=== PATIENT | male | born 1980 | race Two or more races ===

== ENCOUNTER 2025-02-11 22:20 | Emergency (ER) | payer MEDICAID, SELFPAY ==
[2025-02-12 00:02] VITALS: BP 124/63; PULSE 94; RESP 20; TEMP 37.5; O2SAT 97
--- NOTE | 2025-02-12 00:13 | XR_ITS ---
Examination: CT abdomen and pelvis without contrast. Coronal 3-D reconstructions. Sagittal 2-D reconstructions. Date and time of exam: February 12, 2025, 0244 hours, comparison 11/01/2022 INDICATIONS: Abdominal pain diarrhea and vomiting beginning today CTDI: vol (mGy): 6.43 DLP: (mGycm): 367 Technique: Axial images of the abdomen have been obtained, 3 mm slice thickness Intravenous contrast material has not been administered. Low dose protocols were performed. One or more of the following dose reduction techniques were used; automated exposure control, adjustment of the mA and/or KV according to patient size, use of iterative reconstruction technique. Findings: No visualized liver or splenic lesion Absent gallbladder No pancreatic or adrenal mass. No renal or ureteral calculi. Multiple fluid distended small bowel loops Aorta normal size Normal appendix No diverticulitis Colonic diverticulosis Intact urinary bladder Transverse prostate dimension 4.3 cm Intact osseous structures IMPRESSION: Multiple fluid distended small bowel loops, differential would include ileus, enteritis such as Crohn's disease, early small bowel obstruction not excluded, clinical correlation advised and follow-up accordingly
--- NOTE | 2025-02-12 00:14 | PD.EDRME ---
Rapid Medical Screening Exam RME Arrival date/time: 02/11/25 22:20 This is a case of 44-year-old male with no medical history came into the emergency room due to generalized abdominal pain with nausea vomiting Chief Complaint: Abdominal Pain Time Seen by Provider: 02/11/25 22:36 Vital signs: Vital Signs Temperature 99.5 F 02/12/25 00:02 Pulse Rate 94 02/12/25 00:02 Respiratory Rate 20 02/12/25 00:02 Blood Pressure 124/63 02/12/25 00:02 Pulse Oximetry (%) 97 02/12/25 00:02 Oxygen Delivery Method Room Air 02/12/25 00:02 Exam: Moderate tenderness on both lower abdomen no guarding no rebound no rigidity Clinical Impression: Abdominal pain
[2025-02-12 00:44] LABS: Collection Type, Urine Clean Catch
[2025-02-12 00:50] LABS: Bilirubin,Urine Negative (Negative); Blood,Urine Negative (Negative); Clarity,Urine Clear (Clear/Hazy); Color,Urine Lt-Yellow (Lt Yel-Yel); Glucose, Urine 1+ (Negative); Ketones,Urine 3+ (Negative); Leukocyte Esterase,Urine Negative (Negative); Nitrite,Urine Negative (Negative); PH,Urine 6.5 (5.0-7.0); Protein,Urine Trace (Neg - Trace); RBC,Urine 3 /hpf (0-3); Specific Gravity,Urine 1.031 (1.001-1.035); Squamous Epithelial Cell,Urine 1 /hpf (0-5); Urobilinogen,Urine Negative mg/dL (0.0-1.0); WBC,Urine 1 /hpf (0-5)
[2025-02-12 01:28] LABS: Basophils # (Auto) 0.0 Thou/mm3 (0.0-0.2); Basophils % (Auto) 0 % (0-2.5); Eosinophils # (Auto) 0.0 Thou/mm3 (0.0-0.5); Eosinophils % (Auto) 0 % (0-10); Hematocrit 42.3 % (41.0-53.0); Hemoglobin 14.7 g/dL (13.5-16.0); Immature Granulocytes Auto 0.03 Thou/mm3 (0.00-0.00); Lymphocytes # (Auto) 0.4 Thou/mm3 (1.0-4.8); Lymphocytes % (Auto) 3 % (10-50); Mean Corpuscular HGB Conc 34.8 g/dl (31.0-37.0); Mean Corpuscular Hemoglobin 31.6 pg (25.0-35.0); Mean Corpuscular Volume 91 fL (80-100); Monocytes # (Auto) 0.4 Thou/mm3 (0.0-0.8); Monocytes % (Auto) 3 % (0-12); Neutrophils # (Auto) 10.9 Thou/mm3 (1.8-7.7); Neutrophils % (Auto) 93 % (37-80); Nucleated Red Blood Cell # 0.00 Thou/mm3 (0.00-0.00); Nucleated Red Blood Cell % 0 /100 WBC (0); Platelet Count 240 Thou/mm3 (140-440); RDW Standard Deviation 43.6 fL (35.1-43.9); Red Blood Count 4.65 Miln/mm3 (4.50-5.90); White Blood Count 11.7 Thou/mm3 (3.8-10.6)
[2025-02-12 01:48] LABS: Alanine Aminotransferase 26 U/L (10-49); Albumin, Serum 4.7 gm/dL (3.5-5.0); Albumin/Globulin Ratio 1.5 (1.2-2.2); Alkaline Phosphatase 90 U/L (46-116); Anion Gap 10 (7-16); Aspartate Amino Transferase 24 U/L (0-34); BUN/Creatinine Ratio 17 Ratio (12-20); Bilirubin,Total 0.5 mg/dL (0.3-1.2); Blood Urea Nitrogen 15 mg/dL (9-23); Calcium 8.8 mg/dL (8.3-10.6); Calcium (Corrected) 8.8 mg/dL (8.5-10.1); Carbon Dioxide 27.1 mMol/L (20.0-31.0); Chloride 102 mMol/L (98-107); Creatinine (Component) 0.9 mg/dL (0.6-1.3); Globulin 3.2 gm/dL (2.3-3.5); Glucose 174 mg/dL (74-106); Lipase 30 U/L (12-53); Osmolality,Calculated 282 (275-295); Potassium 4.2 mMol/L (3.4-5.1); Sodium 139 mMol/L (136-145); Total Protein 7.9 gm/dL (5.7-8.2); eGFR > 60 See Note
--- NOTE | 2025-02-12 03:37 | PRELIM_ITS ---
CT scan of the abdomen and pelvis without intravenous contrast (axial sections with sagittal and coronal reformats) February 12, 2025 0241 hours Clinical History: Abd pain Radiation Dose: Total exam DLP 368 mGy/cm Comparison: No prior study is available for comparison. Findings: Bibasilar dependent atelectasis is present. The gallbladder is surgically absent. The liver, pancreas, spleen, kidneys and adrenals are unremarkable on this noncontrast study. Fluid filled small bowel loops are noted. No evidence of bowel obstruction. There are multiple colonic diverticula without evidence of diverticulitis. The appendix is within normal limits (coronal images 62-70/132). There is no mesenteric or retroperitoneal adenopathy. The urinary bladder is unremarkable. There is no free fluid or free air. The osseous structures are unremarkable. Impression: No evidence of acute intra-abdominal or pelvic pathology. Fluid-filled small bowel loops while nonspecific. However, in the appropriate clinical setting the possibility of entritis cannot be excluded. Other findings as described above. Report Electronically Signed By: Pilar Amador 02/12/2025 3:36:48 AM [EST]
--- NOTE | 2025-02-12 03:58 | PD.EDABDPN ---
ED Abdominal Pain RME/HPI General Chief Complaint: Abdominal Pain Stated complaint: ABDOMINAL PAIN, DIARRHEA AND VOMITING Time seen by provider: 02/11/25 22:36 Arrival date/time: 02/11/25 22:20 RME / HPI RME / HPI narrative: 02/11/25 22:20 This is a case of 44-year-old male with no medical history came into the emergency room due to generalized abdominal pain with nausea vomiting Dr. Wells?s Main ED Evaluation: 44yo male with no significant past medical history presents to the ED for a chief complaint of generalized abdominal pain x 1 day. Patient reports associated nonbloody N/V/D throughout the day. Denies any fever, chills, chest pain, cough, shortness of breath, or any other associated symptoms. NKA. Related Data Previous Rx's ?Medication ?Instructions ?Recorded hydrocodone 5 mg-acetaminophen 325 1 tab PO Q6H PRN pain #16 tabs 11/01/22 mg tablet dicyclomine 20 mg tablet 20 mg PO QID PRN abdominal pain 02/12/25 #20 tabs ondansetron 4 mg disintegrating 4 mg PO Q6H PRN nausea and 02/12/25 tablet vomiting #20 tabs Allergies Allergy/AdvReac Type Severity Reaction Status Date / Time No Known Allergies Allergy Verified 11/01/22 03:51 Review of Systems Review of Systems Systems Reviewed: All systems reviewed, normal except as documented Past Medical History Past Medical History NEUROLOGIC: Negative Neurological Disorders or Seizures CARDIAC: Negative Cardiac Disorders or Congestive Heart Failure RESPIRATORY: Negative Chronic Obstructive Pulmonary Disease (COPD) or Asthma GASTROINTESTINAL: Positive Gastrointestinal Disorders and Gastroesophageal Reflux Disease GENITOURINARY: Negative Genitourinary Disorders or Renal Disease MUSCULOSKELETAL: Negative Musculoskeletal Disorders ENDOCRINE: Negative Endocrine Disorders, Diabetes Mellitus Type 1 or Diabetes Mellitus Type 2 HEMATOLOGIC: Negative Blood Disorders or Sickle Cell Disease OTHER HISTORY: Negative Blood Transfusions, Blood Transfusion Reaction or Anesthesia Reactions Social History SMOKING STATUS: Never smoker SUBSTANCE USE: does not use ED Exam Narrative Physical exam: Generally patient is alert in no obvious distress, heart regular rate and rhythm, lungs clear to auscultation equal bilaterally, abdomen soft bowel sounds present nondistended mild diffuse tenderness without rebound Course Quality Measures none Orders Category Date Time Status CT abdomen pelvis wo con Stat Exams 02/12/25 00:13 Taken CBC Stat Lab 02/12/25 01:11 Completed Comprehensive Metabolic Panel Stat Lab 02/12/25 01:11 Completed Lipase Stat Lab 02/12/25 01:11 Completed Urinalysis Stat Lab 02/12/25 00:29 Completed Vital Signs Vital signs: Vital Signs Temperature 99.5 F 02/12/25 00:02 Pulse Rate 94 02/12/25 00:02 Respiratory Rate 20 02/12/25 00:02 Blood Pressure 124/63 02/12/25 00:02 Pulse Oximetry (%) 97 02/12/25 00:02 Oxygen Delivery Method Room Air 02/12/25 00:02 Abdominal Pain MDM MDM Narrative MDM Narrative:: Scribe Attestation: 02/12/25 - Zenia, Lina Washington am scribing for and in the presence of Dr. Wells. I interpreted all labs. CT scan down the abdomen pelvis without contrast showed no evidence of acute intra-abdominal or pelvic pathology other than showing the possibility of enteritis. Patient will be discharged on Bentyl and Zofran to be taken as prescribed. Clear liquid diet and advance as tolerated. Patient data External records reviewed:: [facility] previous records (Per chart review, patient was seen here on 11/01/22 for chest wall contusion.) Clinical information provided by:: patient Social determinants that could affect healthcare access:: none Patient has the following chronic illnesses:: none How is presenting disease/condition affected by chronic disease/condition?: no chronic disease Evaluation data The following diagnostics were reviewed and interpreted by me:: lab results and radiology exam(s) Lab and/or radiology exams considered but not ordered:: none Interpretation Summary: Telerad Preliminary Report Draft Patient: BASIL ALVAREZ [facility] Record#: [id number] Birthdate: 1980 Age/Sex: 44 / M [facility]: Ordering Physician: Date of Service: Procedure(s): Accession Number(s): cc: ~ CT scan of the abdomen and pelvis without intravenous contrast (axial sections with sagittal and coronal reformats) February 12, 2025 0241 hours Clinical History: Abd pain Radiation Dose: Total exam DLP 368 mGy/cm Comparison: No prior study is available for comparison. Findings: Bibasilar dependent atelectasis is present. The gallbladder is surgically absent. The liver, pancreas, spleen, kidneys and adrenals are unremarkable on this noncontrast study. Fluid filled small bowel loops are noted. No evidence of bowel obstruction. There are multiple colonic diverticula without evidence of diverticulitis. The appendix is within normal limits (coronal images 62-70/132). There is no mesenteric or retroperitoneal adenopathy. The urinary bladder is unremarkable. There is no free fluid or free air. The osseous structures are unremarkable. Impression: No evidence of acute intra-abdominal or pelvic pathology. Fluid-filled small bowel loops while nonspecific. However, in the appropriate clinical setting the possibility of entritis cannot be excluded. Other findings as described above. Report Electronically Signed By: Pilar Amador 02/12/2025 3:36:48 AM Medications / Prescriptions Medications or Prescriptions considered but not ordered:: none Medication administrations:: none Consultations Consultation(s) initiated? (list below): No Diagnosis Differential diagnosis abdominal pain: other (See MDM) Most likely diagnosis given after review of the tests above:: see clinical impression below Admission Indicated Admission indicated?: not indicated Admission Request Was there a request for admission?: No Disposition Plan Disposition Plan: Discharge Discharge Attestation Discharge Attestation: The patient and all family members were given an opportunity to ask questions and understood the discharge instructions. Discharge instructions specifically effects, indications for sooner follow up or return to the emergency department, and the expected course of current diagnosis. Patient condition: Stable Discharge Plan Plan Patient Disposition: HOME (Self Care) Prescriptions/Referrals Prescriptions/Med Rec: New ondansetron 4 mg tablet,disintegrating 4 mg PO Q6H PRN (Reason: nausea and vomiting) Qty: 20 0RF dicyclomine 20 mg tablet 20 mg PO QID PRN (Reason: abdominal pain) Qty: 20 0RF No Action hydrocodone-acetaminophen 5-325 mg tablet 1 tab PO Q6H MDD 4 tabs PRN (Reason: pain) Qty: 16 0RF Referrals: Rosa Rao PA-C [Primary Care Provider] - In 1 week Problem List Clinical Impression: Abdominal pain Patient/Caregiver Discharge Instructions Education Materials: Abdominal Pain Additional Instructions: Medication as prescribed. Clear liquid diet and advance as tolerated. Follow-up with your doctor. Print Language: Georgian Stand Alone Forms: [employer]jata Award Info., Patient Portal Info Letter
== END 2025-02-12 04:52 | disposition home or self-care (01) ==
PROVIDERS: Nurse Practitioner Family; Emergency Provider Emergency Medicine; PCP Physician Assistant
DX: R10.84 Generalized abdominal pain (principal)
CPT/HCPCS: 36415; 74176; 80053; 81001; 83690; 85025; 99283